=== PATIENT | male | born 1990 | race Caucasian/White ===

== ENCOUNTER 2017-08-10 18:38 | Emergency (ER) | payer MEDICAID, OTHER, SELFPAY ==
--- NOTE | 2017-08-10 20:26 | EDM.PDOC ---
ED HPI GENERAL MEDICAL PROBLEM - General Chief Complaint: Respiratory Problem Stated Complaint: PNUEMONIA Time Seen by Provider: 08/10/17 20:00 Source of Information: Reports: Patient History Limitations: Reports: No Limitations - History of Present Illness INITIAL COMMENTS - FREE TEXT/NARRATIVE: 27-year-old male that has had a cough and cold symptoms for the last 2 weeks has developed chest pain today with coughing and breathing. No fever or chills, no significant sputum production. He is convinced he has pneumonia and wants to be checked. No nausea or vomiting. Onset: Gradual Severity: Mild Associated Symptoms: Reports: Cough. Denies: Fever/Chills, Nausea/Vomiting, Shortness of Breath chest pain Pain Score (Numeric/FACES): 5 left shoulder pain Pain Score (Numeric/FACES): 4 - Related Data Allergies Allergy/AdvReac Type Severity Reaction Status Date / Time citric acid Allergy Difficulty Verified 08/10/17 19:30 Breathing dust Allergy Other Uncoded 08/10/17 19:30 Home Meds: Home Meds D-Methorphan/PE/Acetaminophen [Day Time Cold-Flu Softgel] 1 - 2 cap PO ASDIRECTED 08/10/17 [History] guaiFENesin [Robitussin] 100 mg PO Q6H 08/10/17 [History] Past Medical History HEENT History: Reports: Impaired Vision Psychiatric History: Reports: Other (See Below) Other Psychiatric History: Patient states, "I have dealt with anxiety, depression, adhd but have never been diagnosed with them by a doctor." - Infectious Disease History Infectious Disease History: Reports: Chicken Pox Social & Family History - Tobacco Use Smoking Status *Q: Current Every Day Smoker Years of Tobacco use: 7 Packs/Tins Daily: 0.3 - Caffeine Use Caffeine Use: Reports: Coffee, Energy Drinks, Soda, Tea - Recreational Drug Use Recreational Drug Use: No ED ROS GENERAL - Review of Systems Review Of Systems: See Below Constitutional: Denies: Fever, Chills HEENT: Reports: Rhinitis (Rhinitis last several days has improved), Throat Pain (Had a sore throat until yesterday) Respiratory: Reports: Cough. Denies: Shortness of Breath, Sputum Cardiovascular: Reports: Chest Pain GI/Abdominal: Denies: Abdominal Pain, Nausea, Vomiting Skin: Reports: No Symptoms Neurological: Denies: Headache ED EXAM, GENERAL - Physical Exam Exam: See Below Exam Limited By: No Limitations General Appearance: Alert, No Apparent Distress Respiratory/Chest: No Respiratory Distress, Lungs Clear, Chest Non-Tender Cardiovascular: Regular Rate, Rhythm Neurological: Alert, Oriented Psychiatric: Normal Affect, Normal Mood Skin Exam: Warm, Dry Course - Vital Signs Last Recorded V/S: Last Vital Signs Temp 99.5 F 08/10/17 19:45 Pulse 106 H 08/10/17 19:45 Resp 14 08/10/17 19:45 BP 150/83 H 08/10/17 19:45 Pulse Ox 98 08/10/17 19:45 - Orders/Labs/Meds Orders: Active Orders 24 hr Category Date Time Status Chest 2V [CR] Routine Exams 08/10/17 20:18 Taken - Re-Assessments/Exams Free Text/Narrative Re-Assessment/Exam: 08/10/17 20:28 A two-view chest x-ray was obtained. 08/10/17 20:53 Chest x-ray shows bilateral small infiltrates at the bases on the PA views. Patient was placed on Zithromax for the next 5 days, and also given 6 hydrocodone to use for control pleuritic pain and he is also going to add naproxen twice daily. He can return anytime if worsening despite treatment. Departure - Departure Time of Disposition: 21:03 Disposition: Home, Self-Care 01 Condition: Good Clinical Impression: Pneumonia Qualifiers: Pneumonia type: due to unspecified organism Laterality: bilateral Lung location : upper lobe of lung Qualified Code(s): J18.9 - Pneumonia, unspecified organism - Discharge Information Instructions: Community-Acquired Pneumonia, Adult, [id number] Referrals: PCP,None [Primary Care Provider] - Forms: ED Department Discharge Care Plan Goals: Take 2 pills of antibiotic tonight, then one each morning for the next 4 mornings. Use stronger pain medications as directed for help with sleeping, and also take at least 2 Aleve twice a day up to 3 times a day if needed. Albuterol nebulizers may be used if it seems to help. Return anytime if worsening or concerns. - My Orders Last 24 Hours: My Active Orders 08/10/17 20:18 Chest 2V [CR] Routine - Assessment/Plan Last 24 Hours: My Active Orders 08/10/17 20:18 Chest 2V [CR] Routine
--- NOTE | 2017-08-12 09:27 | CR ---
Chest 2V INDICATION: dyspnea COMPARISON: None FINDINGS: Two views. Bibasilar rounded infiltrates. Lungs mildly hyperinflated. No pleural effusio ns. Heart size normal. Recommend follow-up exam to confirm clearing.
== END 2017-08-10 21:03 | disposition home or self-care (01) ==
LOC: JP.ED 18:38
DX: J18.9 Pneumonia, unspecified organism (principal); F17.210 Nicotine dependence, cigarettes, uncomplicated; Z91.048 Other nonmedicinal substance allergy status
CPT/HCPCS: 71020; 71020-26; 99283; 99284